=== PATIENT | female | born 1955 | race African-American/Black ===

== ENCOUNTER 2016-08-06 14:56 | Outpatient (RCR) | payer OTHER, BC ==
[~2016-08-06 14:56] MED LIST: AMOXICILLIN 50500 MG PO; APRESOLINE 25MG25 MG PO; ASPIRIN 81M81 MG/TA2 PO; BLOOD PRESSURE MED; CEFZIL PO; CEPHALEXIN500 M1 PO; COLACE 100100 MG/CAP PO; CRESTOR40 MG; CRESTOR5 MG PO; GLUCOPHAGE1000 MG PO; HYDRODIURIL50 MG PO; MOTRIN 600600 MG/TAB PO; P MED; ZOCOR 40MG40 MG PO; [UNRECOGNIZED DRUG - OTHER]; [UNRECOGNIZED DRUG - OTHER] PO
== END 2016-08-27 08:25 | disposition home or self-care (01) ==
LOC: WSPT 14:56
DX: M54.5 Low back pain (principal); G89.29 Other chronic pain

== ENCOUNTER 2016-11-13 13:30 | Emergency (ER) | payer OTHER, BC ==
[~2016-11-13] VITALS: Ht 167.6 cm; Wt 88.6 kg
[2016-11-13 13:33] VITALS: TEMP 97.4
[2016-11-13] MEDS ORDERED: MAGNESIUM ELEM300 MG PO (13:39)
[2016-11-13] MEDS ORDERED: MULTIPLE VITAMI1 CAP PO (13:39)
[2016-11-13 14:32] LABS: HEMATOCRIT 40.7 % (37.0-47.0); HEMOGLOBIN 13.2 g/dl (12.5-16.0); MEAN CELL VOLUME 84 fl (80.0-100.0); MEAN CORPUSCULAR HEMOGLOBIN 27 pg (27.0-31.0); MEAN CORPUSCULAR HGB CONC 32 g/dl (33.0-37.0); MEAN PLATELET VOLUME 10.6 fl (7.4-10.4); PLATELET COUNT 296 K/mm3 (130-400); RED BLOOD COUNT 4.87 M/mm3 (4.10-5.30); REDCELL DISTRIBUTION WIDTH-CV 14.6 % (11.5-14.5)
[2016-11-13 14:44] LABS: ADJUSTED CALCIUM 9.2 mg/dL (8.4-10.2); ALBUMIN 4.5 gm/dL (3.5-5.0); BILIRUBIN,TOTAL 0.6 mg/dL (0.0-1.0); CALCIUM 9.6 mg/dL (8.4-10.2); CREATININE, serum 0.79 mg/dL (0.52-1.25); POTASSIUM 3.2 mmol/L (3.4-5.0); TOTAL PROTEIN 7.8 gm/dL (6.4-8.2)
[2016-11-13 14:53] LABS: ADD PATHOLOGY DIFF REVIEW NO
[2016-11-13 15:29] LABS: BAND 8 % (0-10); EOSINOPHIL 2 % (0-4); METAMYELOCYTE 1 % (0-0); MICROCYTOSIS 1+; NEUTROPHILS 45 % (42.0-75.2); PLATELET ESTIMATE NORMAL (NORMAL); TOTAL CELLS COUNTED 100
[2016-11-13 15:59] LABS: PH 5 (5-8); URINE APPEARANCE Clear; URINE BACTERIA None Seen /hpf; URINE BILIRUBIN Negative (NEGATIVE); URINE BLOOD Negative (NEGATIVE); URINE COLOR Yellow; URINE GLUCOSE 2+ (NEGATIVE); URINE KETONE Trace (NEGATIVE); URINE RBC 0-2 /hpf; URINE UROBILINOGEN Negative (NEGATIVE)
[2016-11-13] MEDS ORDERED: ULTRAM 50MG TAB50 MG PO (19:49)
[2016-11-13 20:14] VITALS: BP 120/75; PULSE 81
== END 2016-11-13 20:12 | disposition home or self-care (01) ==
LOC: COL.ER 13:30
PROVIDERS: Emergency Medicine
DX: S09.90XA Unspecified injury of head, initial encounter (principal); I10 Essential (primary) hypertension; E11.9 Type 2 diabetes mellitus without complications; M54.5 Low back pain; M25.512 Pain in left shoulder; M54.2 Cervicalgia; Z79.84 Long term (current) use of oral hypoglycemic drugs; Z87.891 Personal history of nicotine dependence; W11.XXXA Fall on and from ladder, initial encounter; Y92.89 Other specified places as the place of occurrence of the external cause
CPT/HCPCS: J7030

== ENCOUNTER → 2016-12-06 | Outpatient (CLI) | payer BC ==
[~2016-12-06] MED LIST changes: +MAGNESIUM ELEM300 MG PO; +MULTIPLE VITAMI1 CAP PO; +ULTRAM 50MG TAB50 MG PO
== END ==
LOC: MC.RAD 13:00
DX: Z12.31 Encounter for screening mammogram for malignant neoplasm of breast (principal)

== ENCOUNTER 2017-03-03 14:33 | Outpatient (RCR) | payer OTHER | END 2017-03-06 09:24 | LOC: WSOH 14:33 | DX: Z09 Encounter for follow-up examination after completed treatment for conditions other than malignant neoplasm (principal); S80.11XD Contusion of right lower leg, subsequent encounter; H93.8X2 Other specified disorders of left ear; M25.512 Pain in left shoulder; M54.5 Low back pain; W11.XXXD Fall on and from ladder, subsequent encounter; Y99.0 Civilian activity done for income or pay; Z79.84 Long term (current) use of oral hypoglycemic drugs; Z90.710 Acquired absence of both cervix and uterus; Z90.89 Acquired absence of other organs ==

== ENCOUNTER 2020-01-07 14:00 | Outpatient (RCR) | payer BC | END 2020-01-18 08:49 | disposition home or self-care (01) | LOC: MKS.ESL.PT 14:00 | DX: S46.912A Strain of unspecified muscle, fascia and tendon at shoulder and upper arm level, left arm, initial encounter (principal) ==

== ENCOUNTER → 2020-01-28 | Outpatient (CLI) | payer BC | LOC: MC.RAD 13:46 | DX: Z12.31 Encounter for screening mammogram for malignant neoplasm of breast (principal) ==

== ENCOUNTER 2020-09-16 22:21 | Emergency (ER) | payer BC ==
[~2020-09-16] VITALS: Ht 167.6 cm; Wt 86.4 kg
[2020-09-16 22:30] VITALS: TEMP 97.9
[2020-09-16 23:01] LABS: BASO % 0.3 % (0.0-2.0); EOS # 0.2 (0.0-0.7); EOS % 1.8 % (0-4.0); GRAN # 3.9 (1.4-6.5); GRAN % 39.6 % (42.2-75.2); HEMATOCRIT 43.4 % (37.0-47.0); HEMOGLOBIN 13.7 g/dl (12.5-16.0); LYMPH % 50.2 % (20.0-51.0); MEAN CELL VOLUME 86 fl (80.0-100.0); MEAN CORPUSCULAR HEMOGLOBIN 27 pg (27.0-31.0); MEAN CORPUSCULAR HGB CONC 32 g/dl (33.0-37.0); MEAN PLATELET VOLUME 11.1 fl (7.4-10.4); MONO # 0.8 (0.1-0.6); MONO % 7.9 % (1.7-9.3); PLATELET COUNT 284 K/mm3 (130-400); RED BLOOD COUNT 5.04 M/mm3 (4.10-5.30); REDCELL DISTRIBUTION WIDTH-CV 14.7 % (11.5-14.5)
[2020-09-16 23:10] LABS: ALANINE AMINOTRANSFERASE 25 U/L (4-34); ALBUMIN 4.6 gm/dL (3.5-5.0); ALKALINE PHOSPHATASE 102 U/L (50-136); ANION GAP 13 mmol/L (7-16); AST,SGOT 29 U/L (15-37); BILIRUBIN,TOTAL 0.4 mg/dL (0.0-1.0); BLOOD UREA NITROGEN 14 mg/dL (7-17); CALCIUM 9.6 mg/dL (8.4-10.2); CARBON DIOXIDE 26 mmol/L (22-30); CHLORIDE 101 mmol/L (98-107); CREATININE, serum 0.74 (0.52-1.25); GLUCOSE 140 mg/dL (74-106); POTASSIUM 3.3 mmol/L (3.4-5.0); SODIUM 140 mmol/L (137-145); TOTAL PROTEIN 8.8 gm/dL (6.4-8.2)
[2020-09-16 23:21] LABS: TROPONIN-I < 0.012 ng/mL (0.000-0.035)
[2020-09-17] MEDS ORDERED: NYSTATIN OR100 MU/ML PO (00:03)
[2020-09-17] MEDS ORDERED: INDERAL 20MG20 MG PO (00:03)
[2020-09-17 00:13] VITALS: BP 126/72; PULSE 68
== END 2020-09-17 00:15 | disposition home or self-care (01) ==
LOC: COL.ER 22:21
PROVIDERS: Nurse Practitioner Primary Care
DX: I10 Essential (primary) hypertension (principal); R00.2 Palpitations; B37.9 Candidiasis, unspecified; E11.9 Type 2 diabetes mellitus without complications; Z88.2 Allergy status to sulfonamides; Z88.6 Allergy status to analgesic agent; Z87.891 Personal history of nicotine dependence; Z79.84 Long term (current) use of oral hypoglycemic drugs